=== PATIENT | male | born 1960 | race Caucasian/White ===

== ENCOUNTER 2018-02-10 10:29 | Emergency (ER) | payer OTHER ==
[~2018-02-10] VITALS: Ht 180.3 cm; Wt 77.1 kg
[~2018-02-10 10:29] MED LIST: ACETYLCYST200 MG/1 M PO; ADULT LOW DOSE81 MG PO; ASPIR 8181 MG PO; CIPRO500 MG PO; CYCLOBENZAPRINE5 MG PO; DARVOCET-N 1001 EAC1 PO; HYDROCODONE-APA1 TA1 PO; LIPITOR10 MG PO; NAPROSYN500 MG PO; NITROGLYCERIN0.4 MG SL; NOHOMEMEDICATIONS; NORCO 5-325 TA1 EACH PO; NORVASC5 MG PO; PRILOSEC 20 MG20 MG PO; PRILOSEC40 MG PO; PRINIVIL20 MG PO; SERTRALINE HCL50 MG PO; TRAMADOL 50 MG50 MG PO; ZOFRAN ODT4 MG PO
[2018-02-10 11:29] LABS: ABSOLUTE BASOPHILS 0.1 thou/uL (0.0-0.2); ABSOLUTE EOSINOPHILS 0.1 thou/uL (0.0-0.7); ABSOLUTE LYMPHOCYTES 2.1 thou/uL (0.8-5.3); ABSOLUTE MONOCYTES 0.5 thou/uL (0.0-1.2); ABSOLUTE NEUTROPHILS 7.1 thou/uL (1.6-8.1); BASOPHILS 0.9 %; HEMATOCRIT 43.1 % (42.0-52.0); HEMOGLOBIN 14.9 gm/dL (14.0-18.0); LYMPHOCYTES 20.9 %; MCH 33.3 pg (26.0-34.0); MCHC 34.7 g/dL (28.0-37.0); MCV 96.1 fL (80.0-100.0); MONOCYTES 5.3 %; NUCLEATED RBCS 0 /100WBC; PLATELET COUNT* 236 thou/uL (150-400); POLYS 71.9 %; RBC 4.49 mil/uL (4.50-6.00); WBC 9.9 thou/uL (4.0-11.0)
[2018-02-10 11:41] LABS: ANION GAP 13 mmol/L (7-16); BUN 11 mg/dL (7-18); CALCIUM 9.6 mg/dL (8.5-10.1); CHLORIDE 101 mmol/L (98-107); CO2 25 mmol/L (21-32); CREATININE 0.8 mg/dL (0.6-1.3); GLUCOSE 127 mg/dL (70-99); SODIUM 139 mmol/L (136-145)
[2018-02-10 11:52] LABS: ALBUMIN 3.9 g/dL (3.4-5.0); ALKALINE PHOSPHATASE 117 U/L (46-116); LIPASE 156 U/L (73-393); MAGNESIUM 1.6 mg/dL (1.8-2.4); NT-PRO BRAIN NAT PEPTIDE 63 pg/mL (<300); SGOT 27 U/L (15-37); SGPT 33 U/L (30-65); TOTAL BILIRUBIN 0.5 mg/dL (<0.1-1.0); TOTAL PROTEIN 7.7 g/dL (6.4-8.2); TROPONIN-I LEVEL <0.06 ng/mL (<0.06)
[2018-02-10] MEDS ORDERED: LISINOPRIL20 MG PO (14:27)
[2018-02-10] MEDS ORDERED: LIPITOR10 MG PO (14:27)
[2018-02-10] MEDS ORDERED: HYDROCODONE-AP1 EAC6 PO (14:30)
[2018-02-10 14:43] VITALS: BP 130/88
--- NOTE | 2018-02-10 18:09 | EKG ---
[place] [address] ELECTROCARDIOGRAM REPORT Name: OSMIN HAMPTON Room: [facility]#: [id number] Admission: 02/10/18 Attend Phys: Discharge: 02/10/18 Date of : 62 Report #: [id number] THIS REPORT FOR: //name// [facility] ED Test Date: 2018-02-10 Test Time: 11:30:00 Pat Name: OSMIN HAMPTON Department: Room: Gender: M Social Work Assistant: : 1960 Requested By: Alexis Archuleta Order Number: [id number] MD: Bhupinder Turner Measurements Intervals [place] Rate: 114 P: 50 VT: 148 QRS: 29 QRSD: 82 T: 43 QT: 333 QTc: 459 Interpretive Statements Sinus tachycardia Baseline wander in lead(s) V6 Compared to ECG 09/14/2016 21:24:09 Sinus rhythm no longer present Electronically Signed On 02-10-2018 18:09:29 MAP DRAFTER by Bhupinder Turner [email or web address] <ELECTRONICALLY SIGNED> By: Bhupinder Turner MD, [facility] 02/10/18 1809 1130 1130 Bhupinder Turner MD, FACC /EPI
--- NOTE | 2018-02-10 18:09 | EKG ---
[place] [address] ELECTROCARDIOGRAM REPORT Name: OSMIN HAMPTON Room: [facility]#: [id number] Admission: 02/10/18 Attend Phys: Discharge: 02/10/18 Date of : 62 Report #: [id number] THIS REPORT FOR: //name// [facility] ED Test Date: 2018-02-10 Test Time: 12:39:14 Pat Name: OSMIN HAMPTON Department: Room: Gender: M Tufter Operator: : 1960 Requested By: Alexis Archuleta Order Number: [id number] MD: Bhupinder Turner Measurements Intervals [place] Rate: 73 P: 14 GA: 148 QRS: 30 QRSD: 95 T: 46 QT: 395 QTc: 436 Interpretive Statements Sinus rhythm Compared to ECG 09/14/2016 21:24:09 No significant changes Electronically Signed On 02-10-2018 18:09:47 FORENSIC DNA ANALYST by Bhupinder Turner [email or web address] <ELECTRONICALLY SIGNED> By: Bhupinder Turner MD, [facility] 02/10/18 1809 1239 1239 Bhupinder Turner MD, FACC /EPI
== END 2018-02-10 14:44 | disposition home or self-care (01) ==
LOC: M.ERS 10:29
PROVIDERS: Emergency Medicine Emergency Medical Services
DX: M54.2 Cervicalgia (principal); R07.9 Chest pain, unspecified; M54.5 Low back pain; I10 Essential (primary) hypertension; E78.5 Hyperlipidemia, unspecified; V89.0XXA Person injured in unspecified motor-vehicle accident, nontraffic, initial encounter; Y93.89 Activity, other specified; Y92.89 Other specified places as the place of occurrence of the external cause; Y99.8 Other external cause status

== ENCOUNTER 2018-03-02 04:52 | Inpatient (IN) | payer OTHER ==
[~2018-03-02] VITALS: Ht 180.3 cm; Wt 82.1 kg
--- NOTE | ~2018-03-02 | CON ---
[address] [address] CONSULTATION Name: OSMIN HAMPTON Room: [address] IN [facility].#: [id number] Admission: 03/02/18 Attend Phys: Alexi Alvarado MD Discharge: Date of : 62 Report #: [id number] THIS REPORT FOR: //name// CC: Alexi Estrella HISTORY OF PRESENT ILLNESS: This is a pleasant 57-year-old gentleman with past medical history significant for hypertension, coronary artery disease, COPD, who is presenting with inability to pass stool for the last few days. The patient reports progressively worsening abdominal distention and pain. He reports that he has not been able to pass stool for the last 4 days. He tried MiraLax in the past and has not noticed any significant benefit. The patient denies any hematemesis, hematochezia, weight loss in the recent past. PAST MEDICAL HISTORY: As mentioned above. Hypertension, COPD, coronary artery disease. PAST SURGICAL HISTORY: Nonsignificant. SOCIAL HISTORY: The patient used to smoke more than 2 packs of cigarettes per day and now has to cut down to about 1 pack per day, has been doing this at least for 20 years. Alcohol use: The patient reports drinking alcohol on a daily basis. He reports drinking half pint of hard liquor every day, has not had any for about 4 days. Denies recreational drug use. FAMILY HISTORY: There is no family history of colorectal or pancreatic cancer. REVIEW OF SYSTEMS: Comprehensive 10-point review of systems is negative except for what was mentioned in the HPI. PHYSICAL EXAMINATION: VITAL SIGNS: Temperature 36.9, pulse rate 76, respirations 14, blood pressure 144/90. GENERAL: The patient is alert, awake, oriented x 3. HEENT: Pupils are equal, round, reactive to light and accommodation. Mucous membranes are moist. There is no congestion. LUNGS: Clear to auscultation bilaterally. CARDIOVASCULAR: Rate and rhythm regular, S1, S2 present. ABDOMEN: Soft. There is mildly distended fluid thrill is present. EXTREMITIES: Warm, well perfused. There is no edema. LABORATORY DATA: Hemoglobin 14.4, hematocrit 41.7, platelet count 328, WBC count 9.9. Sodium 134, potassium 4, chloride 97, bicarbonate 25, BUN 10, creatinine 1, total bilirubin 1.3, AST 12, ALT 17, alkaline phosphatase 110. INR 1. CT abdomen and pelvis: Diffuse aortoiliac atherosclerosis without dissection. Moderate ascites without obvious cirrhosis to account for the ascites. Segmental nodularity of the liver extensively, [place] [address] CONSULTATION Name: OSMIN HAMPTON Room: [address] IN [facility].#: [id number] Admission: 03/02/18 Attend Phys: Alexi Alvarado MD Discharge: Date of : 62 Report #: [id number] to edema or fluid. Tumor is not excluded. Abnormal pancreas with vague low density lesion in the body of the pancreas associated with prominent in the body and tail. Minimal celiac adenopathy, left adrenal mass and possible right adrenal mass. ASSESSMENT AND PLAN: This is a pleasant 57-year-old gentleman with past medical history of alcohol abuse and extensive smoking history who is presenting with progressively worsening abdominal distention and inability to pass stool. A CT scan performed demonstrated a moderate sized right upper quadrant ascites along with possible mass in the pancreas and nodularity of the liver as well as mass in the left adrenal. I would like for the patient to get an endoscopic ultrasound for evaluation of these abdominal masses, especially the pancreatic mass. I will try and have him transferred to [facility] if these services available at that place. In the event that we are not able to transfer the patient because of lack of bed availability, I will have an ultrasound-guided paracentesis of the ascites performed. Depending on the results of the ascitic fluid analysis, he may need to get a transjugular liver biopsy with wedge pressure measurement. He will still need an outpatient endoscopic ultrasound set up if he is not able to do it inpatient. By: [id number] Dooley MD /ketan
[~2018-03-02 04:52] MED LIST changes: +HYDROCODONE-AP1 EAC6 PO; +LISINOPRIL20 MG PO
[2018-03-02 04:58] VITALS: BP 152/102
[2018-03-02] MEDS ORDERED: LISINOPRIL40 MG PO (05:07)
[2018-03-02 05:21] LABS: ABSOLUTE BASOPHILS 0.1 thou/uL (0.0-0.2); ABSOLUTE EOSINOPHILS 0.3 thou/uL (0.0-0.7); ABSOLUTE LYMPHOCYTES 1.8 thou/uL (0.8-5.3); ABSOLUTE MONOCYTES 0.6 thou/uL (0.0-1.2); ABSOLUTE NEUTROPHILS 7.2 thou/uL (1.6-8.1); BASOPHILS 0.6 %; EOSINOPHILS 2.6 %; HEMATOCRIT 41.7 % (42.0-52.0); HEMOGLOBIN 14.4 gm/dL (14.0-18.0); LYMPHOCYTES 17.8 %; MCH 32.6 pg (26.0-34.0); MCHC 34.4 g/dL (28.0-37.0); MCV 94.6 fL (80.0-100.0); MONOCYTES 6.4 %; MPV 8.8 fl. (7.2-11.1); NUCLEATED RBCS 0 /100WBC; PLATELET COUNT* 328 thou/uL (150-400); POLYS 72.6 %; RBC 4.41 mil/uL (4.50-6.00); RDW-CV 12.6 % (10.5-14.5); WBC 9.9 thou/uL (4.0-11.0)
[2018-03-02 05:33] LABS: ANION GAP 12 mmol/L (7-16); BUN 10 mg/dL (7-18); CALCIUM 9.4 mg/dL (8.5-10.1); CHLORIDE 97 mmol/L (98-107); CO2 25 mmol/L (21-32); GLUCOSE 132 mg/dL (70-99); SODIUM 134 mmol/L (136-145)
[2018-03-02 05:37] LABS: APTT 29.4 Seconds (25.0-31.3); PROTIME 10.4 Seconds (9.20-11.50)
[2018-03-02 05:51] LABS: ALBUMIN 3.3 g/dL (3.4-5.0); ALKALINE PHOSPHATASE 110 U/L (46-116); CK-MB MASS 0.7 ng/mL (<0.5-3.6); LIPASE 147 U/L (73-393); MAGNESIUM 1.3 mg/dL (1.8-2.4); NT-PRO BRAIN NAT PEPTIDE 54 pg/mL (<300); SGOT 12 U/L (15-37); SGPT 17 U/L (30-65); TOTAL BILIRUBIN 0.6 mg/dL (<0.1-1.0); TOTAL PROTEIN 7.2 g/dL (6.4-8.2); TROPONIN-I LEVEL <0.06 ng/mL (<0.06)
[2018-03-02 08:54] VITALS: BP 111/87
[2018-03-02 09:21] VITALS: BP 127/80
--- NOTE | 2018-03-02 16:22 | 2DMMODE ---
[place] [address] 2 D/M-MODE ECHOCARDIOGRAM Name: OSMIN HAMPTON Room: [facility] ADM IN [facility]#: [id number] Admission: 03/02/18 Attend Phys: Alexi Alvarado, Discharge: Date of : 62 Date of Service: 03/02/18 1622 Report #: [id number] THIS REPORT FOR: //name// APPROVED REPORT Study performed: 03/02/2018 11:09:18 EXAM: Comprehensive 2D, Doppler, and color-flow Echocardiogram Patient Location: In-Patient Room #: [facility] Status: routine BSA: 1.97 HR: 70 bpm BP: 127/80 mmHg Rhythm: NSR Other Information Study Quality: Good Indications Chest Pain 2D Dimensions IVSd: 10.76 (7-11mm) LVOT Diam: 20.80 (18-24mm) LVDd: 39.53 mm PWd: 12.17 (7-11mm) Ascending Ao: 31.76 (22-36mm) LVDs: 25.12 (25-40mm) Aortic Root: 36.37 mm Volumes Left Atrial Volume (Systole) LA ESV Index: 20.00 mL/m2 Aortic Valve AoV Peak Vasile.: 1.06 m/s AO Peak Gr.: 4.47 mmHg LVOT Max P.12 mmHg AO Mean Gr.: 2.35 mmHg LVOT Mean P.99 mmHg LVOT Max V: 0.73 m/s AO V2 VTI: 17.73 cm LVOT Mean V: 0.45 m/s MARTHA (VTI): 2.94 cm2 LVOT V1 VTI: 15.32 cm Mitral Valve E/A Ratio: 0.77 MV Decel. Time: 184.40 ms MV E Max Vasile.: 0.74 m/[place] [address] 2 D/M-MODE ECHOCARDIOGRAM Name: OSMIN HAMPTON Room: [address] IN ..#: [id number] Admission: 03/02/18 Attend Phys: Alexi Alvarado, Discharge: Date of : 62 Date of Service: 03/02/18 1622 Report #: [id number] MV PHT: 53.48 ms MVA (PHT): 4.11 cm2 TDI E/Lateral E': 6.73 E/Medial E': 6.73 Medial E' Vasile.: 0.11 m/s Lateral E' Vasile.: 0.11 m/s Pulmonary Valve PV Peak Vasile.: 0.73 m/s PV Peak Gr.: 2.12 mmHg Left Ventricle The left ventricle is normal size. There is normal LV segmental wall motion. There is normal left ventricular wall thickness. Left ventricular systolic function is normal. The left ventricular ejection fraction is within the normal range. LVEF is 60%. Grade I - abnormal relaxation pattern. Right Ventricle The right ventricle is normal size. The right ventricular systolic function is normal. Atria The left atrium size is normal. The right atrium size is normal. Aortic Valve Mild aortic valve sclerosis. No aortic regurgitation is present. There is no aortic valvular stenosis. Mitral Valve The mitral valve is normal in structure. There is no mitral valve regurgitation noted. No evidence of mitral valve stenosis. Tricuspid Valve The tricuspid valve is normal in structure. There is no tricuspid valve regurgitation noted. Pulmonic Valve The pulmonary valve is normal in structure. There is no pulmonic valvular regurgitation. Great Vessels The aortic root is normal in size. IVC is normal in size and collapses >50% [place] [address] 2 D/M-MODE ECHOCARDIOGRAM Name: OSMIN HAMPTON Room: [address] IN [facility]#: [id number] Admission: 03/02/18 Attend Phys: Alexi Alvarado, Discharge: Date of : 62 Date of Service: 03/02/18 1622 Report #: [id number] Pericardium There is no pericardial effusion. <Conclusion> The left ventricle is normal size. There is normal left ventricular wall thickness. Left ventricular systolic function is normal. The left ventricular ejection fraction is within the normal range. LVEF is 60%. Grade I - abnormal relaxation pattern. The right ventricle is normal size. The left atrium size is normal. Mild aortic valve sclerosis. No aortic regurgitation is present. There is no aortic valvular stenosis. The mitral valve is normal in structure. The tricuspid valve is normal in structure. IVC is normal in size and collapses >50% with inspiration. There is no pericardial effusion. There is normal LV segmental wall motion. <ELECTRONICALLY SIGNED> By: Tyrone Castro MD, FACC 03/02/18 1622 162 162 Tyrone Castro MD, FACC /INF
[2018-03-02 16:50] VITALS: BP 148/99
--- NOTE | 2018-03-02 17:01 | EKG ---
[place] [address] ELECTROCARDIOGRAM REPORT Name: OSMIN HAMPTON Room: [place] [address] ADM IN [facility]#: [id number] Admission: 03/02/18 Attend Phys: Alexi Alvarado MD Discharge: Date of : 62 Report #: [id number] THIS REPORT FOR: //name// [facility] ED Test Date: 2018-03-02 Test Time: 04:58:09 Pat Name: OSMIN HAMPTON Department: Room: [facility] Gender: M Imaging Science Professor: : 1960 Requested By: Sekou Cramer Order Number: [id number] MD: Bhupinder Turner Measurements Intervals [place] Rate: 96 P: 52 ND: 155 QRS: 31 QRSD: 86 T: 51 QT: 342 QTc: 433 Interpretive Statements Sinus rhythm Low voltage, precordial leads Compared to ECG 02/10/2018 12:39:14 Low QRS voltage now present Electronically Signed On 03-02-2018 17:00:49 RADIATION ONCOLOGY MANAGER by Bhupinder Turner [email or web address] <ELECTRONICALLY SIGNED> By: Bhupinder Turner MD, [facility] 03/02/18 1700 0458 0458 Bhupinder Turner MD, [facility] /EPI
[2018-03-02 20:00] VITALS: BP 143/97
[2018-03-03] VITALS: BP 142/90
[2018-03-03 04:00] VITALS: BP 127/92
[2018-03-03 08:00] VITALS: BP 144/90
[2018-03-03 08:28] LABS: HEMATOCRIT 41.9 % (42.0-52.0); HEMOGLOBIN 14.4 gm/dL (14.0-18.0); MCH 32.7 pg (26.0-34.0); MCHC 34.3 g/dL (28.0-37.0); MCV 95.3 fL (80.0-100.0); MPV 9.3 fl. (7.2-11.1); RBC 4.4 mil/uL (4.50-6.00); RDW-CV 12.7 % (10.5-14.5); WBC 9.2 thou/uL (4.0-11.0)
[2018-03-03 08:34] LABS: ALBUMIN 2.9 g/dL (3.4-5.0); ALKALINE PHOSPHATASE 101 U/L (46-116); ANION GAP 10 mmol/L (7-16); BUN 5 mg/dL (7-18); CHLORIDE 99 mmol/L (98-107); CHOLESTEROL 114 mg/dL (<200); CO2 27 mmol/L (21-32); CREATININE 0.7 mg/dL (0.6-1.3); GLUCOSE 125 mg/dL (70-99); HDL CHOLESTEROL 34 mg/dL (>40); LDL CHOLESTEROL 56 mg/dL (<100); MAGNESIUM 1.7 mg/dL (1.8-2.4); SGOT 14 U/L (15-37); SGPT 15 U/L (30-65); SODIUM 136 mmol/L (136-145); TC:HDL 3.4 Ratio (Not establshd); TOTAL BILIRUBIN 0.4 mg/dL (<0.1-1.0); TOTAL PROTEIN 6.6 g/dL (6.4-8.2); TRIGLYCERIDE 123 mg/dL (<150); VLDL 25 mg/dL (<40)
[2018-03-03 09:06] LABS: CALCIUM 9.3 mg/dL (8.5-10.1)
[2018-03-03 09:07] LABS: SERUM ASSESSMENT Clear
[2018-03-03 15:31] VITALS: BP 138/90
[2018-03-03 21:10] VITALS: BP 129/95
[2018-03-03 23:56] VITALS: BP 141/95
[2018-03-04 05:30] LABS: ALBUMIN 2.6 g/dL (3.4-5.0); CALCIUM 9.9 mg/dL (8.5-10.1); CREATININE 0.9 mg/dL (0.6-1.3); MAGNESIUM 1.9 mg/dL (1.8-2.4); POTASSIUM 4.9 mmol/L (3.5-5.1); TOTAL BILIRUBIN 0.3 mg/dL (<0.1-1.0); TOTAL PROTEIN 5.7 g/dL (6.4-8.2)
[2018-03-04] MEDS ORDERED: VITAMIN B-1100 M1 PO (09:57)
[2018-03-04] MEDS ORDERED: ALDACTONE50 MG PO (09:57)
[2018-03-04] MEDS ORDERED: LIPITOR10 MG PO (09:57)
[2018-03-04] MEDS ORDERED: LASIX 20 MG TAB20 MG PO (09:57)
[2018-03-04 11:21] VITALS: BP 121/92
[2018-03-04 12:44] VITALS: BP 121/92
[2018-03-04 15:26] LABS: BF RBC 3260 /mm3; TOTAL CELL COUNT 2511 /mm3
[2018-03-04 15:31] LABS: CLARITY HAZY; COLOR AMBER/PINK; TOTAL VOLUME 4680 ml
[2018-03-04 16:07] LABS: BF EOSINOPHILS 4 %; BF LYMPHOCYTES 56 %; BF MONOCYTES 8 %; BF POLYS 28 %; BF TISSUE 4 /100 WBC; SOURCE ASCITES
--- NOTE | 2018-03-05 12:05 | PATH ---
[address] [address] PATHOLOGY RPT PROCEDURE Name: OSMIN HAMPTON Room: [address] IN [facility]#: [id number] Admission: 03/02/18 Date of : 62 Discharge: 03/04/18 Report #: [id number] Path Case #: [id number] Note [facility] Accession Number: [id number] TESTS RESULT FLAG UNITS REF RANGE LAB Clinician Provided Cytology Information No. of containers..01 Other (Miscellaneous) Source: ASCITES DIAGNOSIS: 02 ASCITES INCONCLUSIVE. FEW ATYPICAL CELLS WITH BACKGORUND OF REACTIVE MESOTHELIAL CELLS, RBCs, AND INFLAMMATORY CELLS, PREDOMINANTLY CHRONIC. CELLULAR DEGENERATION IS PRESENT SEE COMMENT. THIS INTERPRETATION INCLUDES EVALUATION OF A CELL BLOCK. COMMENT: A FEW ATYPICAL CELLS PRESENT SINGLY AND IN SMALL GROUPS AND SHOWING VACUOLIZATION-POSSIBLY RELATED TO DEGENERATION, ARE NOTED, CHARACTERIZATION OF WHICH IS UNCERTAIN BUT ARE WITHIN THE SPECTRUM OF REACTIVE MESOTHELIAL CELLS. Signed out by: 02 Mati Brenner MD, Pathologist NPI- [id number] Performed by: 01 Clarke Colon, Financial Analysis Advisor ([facility]) Gross description: 01 34ML, YELLOW, CLOUDY /LCS FLAG LEGEND: L-Low Normal,H-High Normal,LL-Alert Low,HH-Alert High <-Panic Low,>-Panic High,A-Abnormal,AA-Critical Abnormal Performed at: [address] [address] Yariel Simental MD, [address] [place] [address] [address] [place] [address] Mati Brenner MD, Specimen Comment: A courtesy copy of this report has been sent to Specimen Comment: [phone]. Specimen Comment: Report sent to Performed at: [address] [address], [place], [place] [id number] MD Yariel Simental MD Phone: [phone]
[2018-03-05 12:10] LABS: BODY FLUID LDH 236 IU/L (())
[2018-03-06 15:10] LABS: SOURCE PARACENTESIS
== END 2018-03-04 13:39 | disposition home or self-care (01) | DRG 433 ==
LOC: M.ERS 04:52 → M.2W 07:06 → M.TBA-ER 07:06 → M.2W 09:04
PROVIDERS: Family Medicine; ADMIT Internal Medicine
PROC: 0W9G3ZZ Drainage of Peritoneal Cavity, Percutaneous Approach (ICD-10-PCS; principal; 2018-03-03)
DX: K70.9 Alcoholic liver disease, unspecified (principal); R18.8 Other ascites; I43 Cardiomyopathy in diseases classified elsewhere; K59.00 Constipation, unspecified; I10 Essential (primary) hypertension; I25.119 Atherosclerotic heart disease of native coronary artery with unspecified angina pectoris; J44.9 Chronic obstructive pulmonary disease, unspecified; F17.210 Nicotine dependence, cigarettes, uncomplicated; E80.6 Other disorders of bilirubin metabolism; I73.9 Peripheral vascular disease, unspecified; F10.10 Alcohol abuse, uncomplicated; K29.70 Gastritis, unspecified, without bleeding; I11.9 Hypertensive heart disease without heart failure; E27.9 Disorder of adrenal gland, unspecified; K86.9 Disease of pancreas, unspecified; Z79.899 Other long term (current) drug therapy; Z23 Encounter for immunization